=== PATIENT | female | born 1990 | race Caucasian/White ===

== ENCOUNTER 2024-06-04 01:35 | Emergency (ER) | payer OTHER ==
[2024-06-04 02:31] LABS: Specific Gravity < 1.005 (1.005-1.030)
[2024-06-04 02:38] LABS: Absolute Basophils 0.1 K/uL (0-0.5); Absolute Eosinophils 0.7 K/uL (0-0.5); Absolute Monocytes 0.5 K/uL (0.1-1.3); Absolute Neutrophil 2.9 K/uL (1.8-8.0); Basophils % 1.1 % (0-1.3); Eosinophils % 10.3 % (0-4.4); Hematocrit 37.9 % (36.0-45.0); Hemoglobin 12.9 g/dL (12.0-15.0); Lymphocytes % 41.7 % (15.3-44.8); MCH 31.6 pg (27.0-35.0); MCHC 34.1 g/dL (32.0-36.0); MCV 92.6 fL (80-100); MPV 8.5 fL (7.6-11.3); Monocytes % 7.1 % (3.3-12.3); Neutrophils % 39.8 % (41.7-73.7); Nucleated Red Blood Cells % 0.2 % (0-0); Platelets 209 thou/uL (152-406); RBC Red Blood Cell Count 4.09 M/uL (3.86-4.86); Red Cell Distribution Width 13.6 % (12.1-15.2)
[2024-06-04 02:39] LABS: Specific Gravity < 1.005 (1.005-1.030); Urine Bilirubin NEGATIVE (Negative); Urine Blood Negative (Negative); Urine Clarity Clear (Clear); Urine Color Colorless (Yellow); Urine Glucose NEGATIVE (Negative); Urine Ketones NEGATIVE (Negative); Urine Micro Reflex YN NO BILL NO MICROSCOPIC; Urine Nitrite NEGATIVE (Negative); Urine Protein NEGATIVE (Negative); Urine Urobilinogen Normal (Normal)
[2024-06-04 02:47] LABS: Albumin 3.9 g/dL (3.4-5.0); Albumin/Globulin Ratio 1.1 (1.1-1.8); Anion Gap 8.5 mEq/L (5.0-15.0); Bilirubin Direct 0.2 mg/dL (0-0.2); Bilirubin Indirect, Calculated 0.7 mg/dL (0.2-0.8); Bilirubin Total 0.9 mg/dL (0.2-1.0); Globulin 3.7 g/dL (2.3-3.5); Potassium 3.5 mEq/L (3.5-5.1); Protein, Total 7.6 g/dL (6.4-8.2); Troponin High Sensitivity 3.2 pg/mL (<58.9)
[2024-06-04 02:51] LABS: Thyroid Stimulating Hormone 4.92 uIU/mL (0.358-3.740)
--- NOTE | 2024-06-04 03:24 | ER ---
Nurse's Notes [facility] Name: Tiffanie Swanson Age: 33 yrs Sex: Female : 1990 Arrival Date: 06/04/2024 Time: 01:35 Bed 6 Private MD: Diagnosis: Palpitations Presentation: 06/04 01:49 Chief complaint: Patient states: [place] a fast heart rate and could hear it in my left vc1 ear. Checked my watch and it said atrial fibrillation. Coronavirus screen: Vaccine status: Patient reports receiving the 2nd dose of the covid vaccine. At this time, the client does not indicate any symptoms associated with coronavirus-19. Ebola Screen: Patient negative for fever greater than or equal to 101.5 degrees Fahrenheit, and additional compatible Ebola Virus Disease symptoms Patient denies exposure to infectious person. Patient denies travel to an Ebola-affected area in the 21 days before illness onset. No symptoms or risks identified at this time. Initial Sepsis Screen: Does the patient meet any 2 criteria? No. Patient's initial sepsis screen is negative. Does the patient have a suspected source of infection? No. Patient's initial sepsis screen is negative. Risk Assessment: Do you want to hurt yourself or someone else? Patient reports no desire to harm self or others. Onset of symptoms was June 04, 2024. 01:49 Method Of Arrival: Ambulatory vc1 01:49 Acuity: NEVAEH 3 vc1 Triage Assessment: 01:53 General: Appears in no apparent distress. comfortable, slender, well groomed, well vc1 developed, well nourished, Behavior is cooperative, anxious. Pain: Denies pain. EENT: No deficits noted. No signs and/or symptoms were reported regarding the EENT system. Neuro: Level of Consciousness is awake, alert, obeys commands, Oriented to person, place, time, situation, Appropriate for age. Cardiovascular: Reports palpitations, Denies chest pain. Respiratory: Airway is patent Respiratory effort is even, unlabored, Respiratory pattern is regular, symmetrical. GI: No deficits noted. No signs and/or symptoms were reported involving the gastrointestinal system. : No deficits noted. No signs and/or symptoms were reported regarding the genitourinary system. Derm: Skin is intact, is healthy with good turgor, Skin is dry, Skin is normal, Skin temperature is warm. Musculoskeletal: Circulation, motion, and sensation intact. Range of motion: intact in all extremities. 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 - Infectious Disease History:: Denies. - Social history:: Smoking status: Patient denies any tobacco usage or history of. - Family history:: not pertinent. Screenin:51 [facility] ED Fall Risk Assessment (Adult) History of falling in the last 3 months, vc1 including since admission No falls in past 3 months (0 pts) Confusion or Disorientation No (0 pts) Intoxicated or Sedated No (0 pts) Impaired Gait No (0 pts) Mobility Assist Device Used No (0 pt) Altered Elimination No (0 pt) Score/Fall Risk Level 0 - 2 = Low Risk Oriented to surroundings, Maintained a safe environment, Educated pt \T\ family on fall prevention, incl call for assistance when getting out of bed. Abuse screen: Denies threats or abuse. Nutritional screening: No deficits noted. Tuberculosis screening: No symptoms or risk factors identified. Assessment: 01:41 General: Appears comfortable, Behavior is calm, cooperative. Pain: Complains of pain in ha1 chest Pain does not radiate. Pain currently is 3 out of 10 on a pain scale. Quality of pain is described as pressure, Pain began suddenly. Neuro: [place] Agitation-Sedation Scale (RASS): 0 - Alert and Calm Level of Consciousness is awake, alert, obeys commands, Oriented to person, place, time, situation. Cardiovascular: Reports diaphoresis, palpitations, chest tightness and Afib in her apple watch Heart tones S1 S2 present Capillary refill < 3 seconds Patient's skin is warm and dry. Rhythm is sinus rhythm. Respiratory: Airway is patent Respiratory effort is even, unlabored, Respiratory pattern is regular, symmetrical. 02:40 Reassessment: Patient and/or family updated on plan of care and expected duration. Pain ha1 level reassessed. Patient is alert, oriented x 3, equal unlabored respirations, skin warm/dry/pink. Patient denies pain at this time. Patient states feeling better. Patient states symptoms have improved. Vital Signs: 01:49 BP 131 / 81; Pulse 74; Resp 14; Temp 98.6; Pulse Ox 100% ; Weight 45.36 kg; Height 5 vc1 ft. 2 in. ; 02:30 BP 131 / 81; Pulse 70; Resp 17 S; Pulse Ox 100% on R/A; ha1 03:21 BP 121 / 67; Pulse 80; Resp 15 S; Pulse Ox 99% on R/A; ha1 01:49 Body Mass Index 18.29 (45.36 kg, 157.48 cm) vc1 ED Course: 01:39 Patient arrived in ED. jj6 01:41 Door closed. Noise minimized. Warm blanket given. Pillow given. ha1 01:45 Inserted saline lock: 20 gauge in right antecubital area, using aseptic technique. ha1 Blood collected. Flushed with 10 mL NS. 01:48 Pablo Donovan MD is Attending Physician. al5 01:50 Triage completed. vc1 01:51 Arm band placed on right wrist. vc1 01:54 Patient has correct armband on for positive identification. Bed in low position. Call vc1 light in reach. top lift scourer on. Pulse ox on. NIBP on. 01:54 Patient maintains SpO2 saturation greater than 95% on room air. vc1 03:19 Dara Lee RN is Primary Nurse. ha1 03:22 No provider procedures requiring assistance completed. ha1 03:24 Jeferson Belle MD is Referral Physician. sp4 03:32 Provided Education on: post er care. bm8 03:32 IV discontinued, intact, bleeding controlled, No redness/swelling at site. Pressure bm8 dressing applied. Administered Medications: No medications were administered Medication: 01:55 VIS not applicable for this client. vc1 Outcome: 03:24 Discharge ordered by . sp4 03:32 Discharged to home ambulatory, bm8 03:32 Condition: stable 03:32 Discharge instructions given to patient, family, Instructed on discharge instructions, follow up and referral plans. Demonstrated understanding of instructions, follow-up care, 03:33 Patient left the ED. bm8 Signatures: Krystal Jerome jj6 Rosie Montalvo RN RN vc1 Dara Lee, RN RN ha1 Pablo Donovan MD MD sp4 Jean Ba, RN RN bm8 Yazmin Worrell, RN RN al5
--- NOTE | 2024-06-04 03:24 | EDPHYS ---
Physician Documentation [facility] Name: Tiffanie Swanson Age: 33 yrs Sex: Female : 1990 Arrival Date: 06/04/2024 Time: 01:35 Bed 6 Private MD: ED Physician Pablo Donovan HPI: 06/04 02:07 This 33 yrs old Female presents to ER via Ambulatory with complaints of Chest sp4 Pain, Chest Tightness, Irregular Pulse. 03:36 33-year-old female presents with acute chest tightness and palpitations. Starting at sp4 12:30. 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 - Infectious Disease History:: Denies. - Social history:: Smoking status: Patient denies any tobacco usage or history of. - Family history:: not pertinent. ROS: 03:36 Constitutional: Negative for fever, chills, and weight loss, Cardiovascular: positive sp4 Of chest tightness and palpitations 03:36 All other systems are negative, Exam: 03:35 Constitutional: This is a well developed, well nourished patient who is awake, alert, sp4 and in no acute distress. Head/Face: Normocephalic, atraumatic. Eyes: Pupils equal round and reactive to light, extra-ocular motions intact. Lids and lashes normal. Conjunctiva and sclera are not injected. Cornea within normal limits. Periorbital areas with no swelling, redness, or edema. ENT: Nares patent. No nasal discharge, no septal abnormalities noted. Tympanic membranes are normal and external auditory canals are clear. Oropharynx with no redness, swelling, or masses, exudates, or evidence of obstruction, uvula midline. Mucous membranes moist. Neck: Trachea midline, no thyromegaly or masses palpated, and no cervical lymphadenopathy. Supple, full range of motion without nuchal rigidity, or vertebral point tenderness. Chest/axilla: Normal chest wall appearance and motion. Nontender with no deformity. No lesions are appreciated. Cardiovascular: Regular rate and rhythm with a normal S1 and S2. No gallops, murmurs, or rubs. Normal PMI, no JVD. No pulse deficits. Respiratory: Lungs have equal breath sounds bilaterally, clear to auscultation and percussion. No rales, rhonchi or wheezes noted. No increased work of breathing, no retractions or nasal flaring. Abdomen/GI: Soft, with normal bowel sounds. No distension or tympany. No guarding or rebound. No evidence of tenderness throughout. Back: No spinal tenderness. No costovertebral tenderness. Skin: Warm, dry with normal turgor. Normal color with no rashes, no lesions, and no evidence of cellulitis. MS/ Extremity: Pulses equal, no cyanosis. Neurovascular intact. Full, normal range of motion. Neuro: Awake and alert, GCS 15, oriented to person, place, time, and situation. Cranial nerves II-XII grossly intact. Motor strength 5/5 in all extremities. Sensory grossly intact. Psych: Awake, alert, with orientation to person, place and time. Behavior, mood, and affect are within normal limits 03:35 ECG was reviewed by the Attending Physician. Time 0150 Vital Signs: 01:49 BP 131 / 81; Pulse 74; Resp 14; Temp 98.6; Pulse Ox 100% ; Weight 45.36 kg; Height 5 vc1 ft. 2 in. ; 02:30 BP 131 / 81; Pulse 70; Resp 17 S; Pulse Ox 100% on R/A; ha1 03:21 BP 121 / 67; Pulse 80; Resp 15 S; Pulse Ox 99% on R/A; ha1 01:49 Body Mass Index 18.29 (45.36 kg, 157.48 cm) vc1 MDM: 01:53 Patient medically screened. sp4 03:36 Differential diagnosis: acute pericarditis, anxiety, chest wall pain, costochondritis, sp4 esophagitis, gastritis. HEART Score: History: Slightly Suspicious (0), ECG: Normal (0), Age: < or = 45 years (0), Risk Factors: No Risk Factors Known (0), Troponin: < or = 1 x Normal Limit (0), Total Score = 0. Data reviewed: vital signs, nurses notes. ED course: EKG normal today workup unremarkable. Patient stable for discharge home. Will refer to paper latcher . . 06/04 02:01 Order name: Basic Metabolic Panel; Complete Time: 03:11 sp4 06/04 02:01 Order name: CBC with Diff; Complete Time: 03:11 sp4 06/04 02:01 Order name: LFT's; Complete Time: 03:11 sp4 06/04 02:01 Order name: Troponin HS; Complete Time: 03:11 sp4 06/04 02:01 Order name: Test, Urine; Complete Time: 03:11 sp4 06/04 02:02 Order name: Urinalysis W/Microscopic; Complete Time: 03:11 sp4 06/04 02:02 Order name: TSH; Complete Time: 03:11 sp4 06/04 02:02 Order name: T4 Free; Complete Time: 03:11 sp4 06/04 02:01 Order name: EKG; Complete Time: 02:01 sp4 06/04 01:55 Order name: EKG - Nurse/Tech; Complete Time: 01:55 ha1 06/04 02:01 Order name: Cardiac monitoring; Complete Time: 02:04 sp4 06/04 02:01 Order name: IV Saline Lock; Complete Time: 02:04 sp4 06/04 02:01 Order name: Labs collected and sent; Complete Time: 02:04 sp4 06/04 02:01 Order name: O2 Per Protocol; Complete Time: 02:04 sp4 06/04 02:01 Order name: O2 Sat Monitoring; Complete Time: 02:04 sp4 EC:35 Rate is 69 beats/min. Rhythm is regular, Normal Sinus Rhythm. QRS [place] is Normal. NM sp4 interval is normal. QRS interval is normal. QT interval is normal. No Q waves. T waves are Normal. No ST changes noted. Clinical impression: Normal ECG. Interpreted by me. Reviewed by me. Administered Medications: No medications were administered Disposition Summary: 06/04/24 03:24 Discharge Ordered Problem: new sp4 Symptoms: have improved sp4 Condition: Stable sp4 Diagnosis - Palpitations sp4 Followup: sp4 - With: Jeferson Belle MD - When: 7 - 10 days - Reason: Recheck today's complaints Discharge Instructions: - Discharge Summary Sheet sp4 - Palpitations sp4 Forms: - Patient Portal Instructions sp4 Signatures: Dispatcher [employer] Rosie Marie RN RN vc1 Dara Lee RN RN ha1 Pablo Donovan MD MD sp4
[2024-06-04 03:46] VITALS: TEMP 98.6
[2024-06-04 03:58] VITALS: BP 121/67; O2SAT 99
--- NOTE | 2024-06-05 10:02 | EKG ---
Test Date: 2024-06-04 Test Time: 01:50:56 Rn Recovery: [facility] MEASUREMENT RESULTS: Intervals: Rate: 69 SD: 122 QRSD: 76 QT: 408 QTc: 437 [place]: P: 42 SD: 122 QRS: 84 T: 72 INTERPRETIVE STATEMENTS: Normal sinus rhythm with sinus arrhythmia Normal ECG No previous ECG available for comparison Electronically Signed On 06-05-24 10:00:30 CDT by Gokul Hameed
== END 2024-06-04 03:33 | disposition home or self-care (01) ==
LOC: ER 01:35
DX: R00.2 Palpitations (principal); R07.89 Other chest pain
CPT/HCPCS: 36415; 80048; 80076; 81001; 81025; 84439; 84443; 84484; 85025; 93005; 99284